=== PATIENT | male | born 1950 | race American Indian/Alaskan Native ===

== ENCOUNTER 2017-05-24 07:33 | Emergency (ER) | payer OTHER ==
[2017-05-24 07:41] VITALS: BMI 27.6
[2017-05-24 07:51] VITALS: TEMP 98.7
[2017-05-24] MEDS ORDERED: Aspirin 325 mg EC Tablets PO STA (07:55)
--- NOTE | 2017-05-24 08:00 | ED PDOC ---
Arrival/HPI - General Chief Complaint: Chest Pain Time Seen by Provider: 05/24/17 07:49 Historian: Patient - History of Present Illness Time/Duration: Other (2-3 days) Symptom Onset: Gradual Symptom Course: Worsening Quality: Other (Pleuritic) Severity Level: Mild Associated Symptoms (Text): 05/24/17 07:57 Patient complains of a 2 to three-day history of left-sided chest pain made worse by breathing movement and palpation. He felt out of breath this morning and came to the emergency department. No nausea or vomiting. No diaphoresis. No dizziness or lightheadedness. No injury or trauma. His never experienced this previously. He appears comfortable and in no distress. Past Medical History - Provider Review Nursing Documentation Reviewed: Yes - Infectious Disease Hx of Infectious Diseases: None - HEENT Hx Cataracts: Yes (Removed OU) Other/Comment: hemmorage OU years ago. Wears glasses - Psychiatric Hx Substance Use: No - Surgical History Hx Cataract Extraction: Yes (OU) Other/Comment: Eye surgery for bleeding. Family/Social History - Physician Review Nursing Documentation Reviewed: Yes Family/Social History: Unknown Family HX Smoking Status: Never Smoked Hx Alcohol Use: No Hx Substance Use: No Allergies/Home Meds Allergies/Adverse Reactions: Allergies No Known Allergies Allergy (Verified 05/24/17 07:51) Review of Systems - Physician Review All systems were reviewed & negative as marked: Yes - Review of Systems Constitutional: Normal Respiratory: SOB. absent: Cough, Sputum, Wheezing Cardiovascular: Chest Pain. absent: Palpitations, Syncope Gastrointestinal: absent: Abdominal Pain, Diarrhea, Nausea, Vomiting Genitourinary Male: Normal Neurological: Normal Physical Exam Vital Signs Temp Pulse Resp BP Pulse Ox 05/24/17 10:25 72 17 115/96 H 100 05/24/17 09:05 76 18 112/97 H 99 05/24/17 07:48 98.7 F 100 H 20 146/91 H 98 Temperature: Afebrile Blood Pressure: Hypertensive Pulse: Regular Respiratory Rate: Normal Appearance: Positive for: Well-Appearing, Non-Toxic, Comfortable Pain Distress: None Mental Status: Positive for: Alert and Oriented X 3 - Systems Exam Head: Present: Atraumatic, Normocephalic Pupils: Present: PERRL Extroacular Muscles: Present: EOMI Conjunctiva: Present: Normal Mouth: Present: Moist Mucous Membranes Pharnyx: No: ERYTHEMA, EXUDATE, TONSILS ENLARGED Neck: Present: Normal Range of Motion Respiratory/Chest: Present: Clear to Auscultation, Good Air Exchange. No: Respiratory Distress, Accessory Muscle Use, Wheezes, Decreased Breath Sounds, Rales, Retracting, Rhonchi, Tachypneic, Tender to Palpation Cardiovascular: Present: Regular Rate and Rhythm, Normal S1, S2. No: Murmurs Abdomen: Present: Normal Bowel Sounds. No: Tenderness, Distention, Peritoneal Signs, Rebound, Guarding Back: Present: Normal Inspection Upper Extremity: Present: Normal Inspection. No: Cyanosis, Edema Lower Extremity: Present: Normal Inspection. No: Edema Neurological: Present: GCS=15, CN II-XII Intact, Speech Normal, Motor Func Grossly Intact Skin: Present: Warm, Dry, Normal Color. No: Rashes Psychiatric: Present: Alert, Oriented x 3, Normal Insight, Normal Concentration Medical Decision Making ED Course and Treatment: 05/24/17 07:59 EKG shows normal sinus rhythm rate approximately 85 with poor R-wave progression and Q waves inferiorly with no old available for comparison. No acute ST or T-wave changes 05/24/17 09:10 Chest X-ray: Creator : Shlomo Martin MD FINDINGS: LUNGS: No active pulmonary disease. PLEURA: No significant pleural effusion identified, no pneumothorax apparent. CARDIOVASCULAR: Normal. OSSEOUS STRUCTURES: No significant abnormalities. VISUALIZED UPPER ABDOMEN: Normal. OTHER FINDINGS: None. IMPRESSION: No active disease. 05/24/17 10:27 Symptoms have improved post Toradol. Patient was seen and examined in the emergency department by , who made arrangements for a stress test and echocardiogram. These are pending. 05/24/17 13:59 called. Stress test and echo are unrevealing. He will discharge the patient and follow-up in the office. Patient has a small pleural effusion on his CTA. This is probably the cause of his pleuritic chest pain. He will be treated with Naprosyn and follow-up in the office. Follow up in ER as needed. - Lab Interpretations Lab Results: 05/24/17 08:00 05/24/17 08:00 Lab Results 05/24/17 08:00: TSH 3rd Generation 2.04 05/24/17 08:00: Hemoglobin A1c 6.0 05/24/17 08:00: Triglycerides 122, Cholesterol 205 H, LDL Cholesterol Direct 102 , HDL Cholesterol 58 05/24/17 08:00: Sodium 140, Potassium 4.1, Chloride 104, Carbon Dioxide 26, Anion Gap 14, BUN 11, Creatinine 1.0, Est GFR ( Amer) > 60, Est GFR (Non- Af Amer) > 60, Random Glucose 156 H, Calcium 9.3, Total Bilirubin 0.6, AST 27, ALT 33, Alkaline Phosphatase 73, Lactate Dehydrogenase 551, Total Creatine Kinase 150, Troponin I < 0.01, NT-Pro-B Natriuret Pep 46.8, Total Protein 7.5, Albumin 4.0, Globulin 3.5, Albumin/Globulin Ratio 1.2 05/24/17 08:00: PT 11.6, INR 1.05, APTT 29.7, D-Dimer, Quantitative 496 H 05/24/17 08:00: WBC 5.4 D, RBC 5.06, Hgb 13.9 L, Hct 41.3 L, MCV 81.6, MCH 27.5 , MCHC 33.7, RDW 14.7 H, Plt Count 105 L, MPV 11.2 H, Gran % 69.8 H, Lymph % ( Auto) 23.4, [place] % (Auto) 5.9, Eos % (Auto) 0.7 L, Baso % (Auto) 0.2, Gran # 3.79, Lymph # 1.3, [place] # 0.3, Eos # 0.0, Baso # 0.01 I have reviewed the lab results: Yes - RAD Interpretation Radiology Orders: 05/24/17 07:56 CHEST PORTABLE [RAD] Stat 05/24/17 09:06 ANGIO CHEST PE PROTOCOL [CT] Stat CT scan of the chest as read by the radiologist shows no evidence of pulmonary embolism. There is a very small left pleural effusion. Custom Applicator: Radiologist - EKG Interpretation Interpreted by ED Physician: Yes Type: 12 lead EKG - Medication Orders Current Medication Orders: Discontinued Medications Aspirin (Ecotrin) 325 mg PO STAT STA Stop: 05/24/17 07:56 Last Admin: 05/24/17 08:13 Dose: 325 mg Ketorolac Tromethamine (Toradol) 15 mg IVP ONCE ONE Stop: 05/24/17 07:57 Last Admin: 05/24/17 08:13 Dose: 15 mg MAR Pain Assessment Document 05/24/17 08:13 RUTH (Rec: 05/24/17 08:14 RUTH [id number]) Pain Reassessment Is this a pain reassessment? No Sleep Is patient sleeping during reassessment? No Presence of Pain Presence of Pain Yes IVP Administration Document 05/24/17 08:13 RUTH (Rec: 05/24/17 08:14 RUTH [id number]) Charges for Administration # of IVP Administrations 1 - Scribe Statement The provider has reviewed the documentation as recorded by the Scribe Ainsley Pal Provider Scribe Attestation: All medical record entries made by the Scribe were at my direction and personally dictated by me. I have reviewed the chart and agree that the record accurately reflects my personal performance of the history, physical exam, medical decision making, and the department course for this patient. I have also personally directed, reviewed, and agree with the discharge instructions and disposition. Disposition/Present on Arrival - Present on Arrival Any Indicators Present on Arrival: No History of DVT/PE: No History of Uncontrolled Diabetes: No Urinary Catheter: No History of Decub. Ulcer: No History Surgical Site Infection Following: None - Disposition Have Diagnosis and Disposition been Completed?: Yes Diagnosis: Pleural effusion, Pleuritic chest pain Disposition: HOME/ ROUTINE Disposition Time: 14:00 Patient Plan: Discharge Condition: IMPROVED Discharge Instructions (ExitCare): Chest Pain (ED), Pleurisy (ED), Pleural Effusion (ED) Prescriptions: Naproxen [Naprosyn] 500 mg PO BID #14 tab Referrals: Booker Barnett MD [Primary Care Provider] - Follow up with primary Forms: [employer] ([place])
[2017-05-24 08:46] LABS: BASO # 0.01 K/mm3 (0.0-2.0); BASO % 0.2 % (0.0-3.0); EOS % 0.7 % (1.5-5.0); GRAN # 3.79 (1.4-6.5); GRAN % 69.8 % (50.0-68.0); HEMATOCRIT 41.3 % (42.0-52.0); LYMPH # 1.3 (1.2-3.4); LYMPH % 23.4 % (22.0-35.0); MEAN CELL VOLUME 81.6 fl (80.0-105.0); MEAN CORPUSCULAR HEMOGLOBIN 27.5 pg (25.0-35.0); MEAN CORPUSCULAR HGB CONC 33.7 g/dl (31.0-37.0); MEAN PLATELET VOLUME 11.2 fl (7.0-11.0); MONO # 0.3 (0.1-0.6); MONO % 5.9 % (1.0-6.0); RED CELL DISTRIBUTION WIDTH 14.7 % (11.5-14.5); WHITE BLOOD COUNT 5.4 10^3/ul (4.5-11.0)
[2017-05-24 08:47] LABS: ALB/GLOB RATIO 1.2 (1.1-1.8); ALKALINE PHOSPHATASE 73 U/L (38-126); ALT/SGPT 33 U/L (7-56); AST/SGOT 27 U/L (17-59); BILIRUBIN,TOTAL 0.6 mg/dL (0.2-1.3); BLOOD UREA NITROGEN 11 mg/dL (7-21); CALCIUM 9.3 mg/dL (8.4-10.5); CARBON DIOXIDE 26 mmol/L (21-33); CHLORIDE 104 mmol/L (98-107); GFR AFRICAN-AMERICAN > 60; GLUCOSE,RANDOM 156 mg/dL (70-110); POTASSIUM 4.1 mmol/L (3.6-5.0); SODIUM 140 mmol/L (132-148); TOTAL PROTEIN 7.5 g/dL (5.8-8.3)
[2017-05-24 08:51] LABS: INR 1.05 (0.93-1.08); PARTIAL THROMBOPLASTIN TIME 29.7 Seconds (25.1-36.5)
[2017-05-24 08:58] LABS: TROPONIN I < 0.01 ng/mL
--- NOTE | 2017-05-24 09:08 | RAD ---
HISTORY: cp COMPARISON: No prior. FINDINGS: LUNGS: No active pulmonary disease. PLEURA: No significant pleural effusion identified, no pneumothorax apparent. CARDIOVASCULAR: Normal. OSSEOUS STRUCTURES: No significant abnormalities. VISUALIZED UPPER ABDOMEN: Normal. OTHER FINDINGS: None. IMPRESSION: No active disease.
[2017-05-24] MEDS ORDERED: Iodixanol 320 MG/ML 100 ML BOTTLE IV ONE (09:13)
[2017-05-24 09:51] LABS: CHOLESTEROL 205 mg/dL (130-200)
--- NOTE | 2017-05-24 10:21 | CT ---
PROCEDURE: CT Chest with contrast (Pulmonary Angiogram) HISTORY: ELEVATED DIMER COMPARISON: None available. TECHNIQUE: Axial computed tomography images were obtained of the chest in the pulmonary arterial phase of enhancement. Coronal and sagittal reformatted images were created and reviewed. Intravenous contrast dose: 100 mL Visipaque 320 Radiation dose: Total exam DLP = 516.08 mGy-cm. This CT exam was performed using one or more of the following dose reduction techniques: Automated exposure control, adjustment of the mA and/or kV according to patient size, and/or use of iterative reconstruction technique. FINDINGS: PULMONARY ARTERIES: Unremarkable. No pulmonary embolism. AORTA: No acute findings. No thoracic aortic aneurysm. LUNGS: Unremarkable. No nodule, mass or pulmonary consolidation. PLEURAL SPACES: Trace left pleural effusion. No right pleural effusion. No pneumothorax. HEART: Unremarkable. No cardiomegaly. No significant pericardial effusion. LYMPH NODES: No lymphadenopathy. BONES, CHEST WALL: Unremarkable. No fracture or destructive lesion OTHER FINDINGS: Unremarkable. IMPRESSION: No evidence of pulmonary embolism. No acute infiltrate. Trace left pleural effusion. Otherwise unremarkable examination
[2017-05-24 10:26] VITALS: O2SAT 100
--- NOTE | 2017-05-24 13:45 | CARD ---
APPROVED REPORT EKG Measurement Heart [id number] AR [id number] [id number] <Conclusion> Normal sinus rhythm Inferior infarct, age undetermined Possible lead reversal V 2, 3
[2017-05-24 14:13] VITALS: BP 118/86; PULSE 75; RESP 18
--- NOTE | 2017-05-24 15:15 | CON ---
DATE: 05/24/2017 CONSULT SERVICE: Cardiology. REASON FOR THE CONSULTATION: Chest pain, abnormal EKG, rule out underlying coronary artery disease. 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 So in summary, the patient has 2 kinds of chest pain. One pain that is more like musculoskeletal reproducible in the left rib, but second pain is mentioned a week ago, he has some chest pain with shortness of breath. PAST MEDICAL HISTORY: Nothing significant. SOCIAL HISTORY: Nothing significant. No history of smoking. No history of alcohol abuse. No history of substance abuse. FAMILY HISTORY: Noncontributory. CURRENT MEDICATIONS: None. ALLERGIES: NO KNOWN DRUG ALLERGIES. REVIEW OF SYSTEMS: As per HPI. PHYSICAL EXAMINATION: VITAL SIGNS: As follows, temperature 98.7, heart rate 100, blood pressure 146/90. HEENT: PERRLA intact. NECK: Supple. No carotid bruit or thyromegaly. CHEST: Clear to auscultation. HEART: S1 and S2 regular. ABDOMEN: Soft. EXTREMITIES: Clubbing and cyanosis negative. LABORATORY DATA: EKG shows normal sinus, Q-wave in II, III, AVF, abnormal EKG. WBC 5.4, hemoglobin 13.9, hematocrit 41.3, platelet count 105. Chemistry shows sodium 140, potassium 4.2, chloride 104, carbon dioxide 26, anion gap of 14, BUN 11, creatinine 1.0, random sugar 156. Troponin 0.01. IMPRESSION: Chest pain most likely musculoskeletal, but giving a very abnormal EKG and also one-week history of prior chest pain with shortness of breath. Needs to rule out underlying coronary artery disease. We will keep n.p.o. We will give a stress test and echo. Further recommendations of the stress. We will follow with you. We will also add lipid profile, TSH and hemoglobin A1c in the blood drawn today. We will follow with you Thank you Dr. Barnett, for providing me the opportunity in taking care of the patient, Dylon Waldrop. Bernadette Wallis MD
--- NOTE | 2017-05-24 15:58 | CARD ---
APPROVED REPORT Protocol: OLI Test Type: Sestamibi Stress Test Attending Physician: Dr. Bernadette Jamil Referring Physician: Dr. Booker Barnett Test Indications: Chest Pain Height:5 ft 8 in Weight:182lbs Medications: TORADOL, ASPIRIN Medical History: 66 YEAR OLD MALE WITH A H/O CATARACTS Target HR: 153 bpm Resting ECG: RSR. Resting Heart Rate: 82 bpm Resting Blood Pressure: 138/90mmHg Submaximum (85%): 130 bpm POST EXERCISE Reason for Termination: Protocol completed Target HR: Yes Max HR: 171 bpm 111% of Maximum Predicted HR: 153 bpm Exercise duration: 09:38 min:sec, 4 Stage Exercise capacity: 11.1METs Max Blood Pressure: 194/84mmHg Blood Pressure response to exercise: normal resting BP - appropriate response Heart Rate response to exercise: appropriate Chest Pain: No, none Angina index: 0 Arrhythmia: No, none ST Change: Yes, 1-1.5mm ST Depression which at times looked Upsloping Type i Deviation: 0 mm TEST SUMMARY [id number]:[id number]/.0. [id number]/90.0. EXERCISESTAGE 103:[id number]/90.0. EXERCISESTAGE 203:[id number]/96.0. EXERCISESTAGE 303:[id number]/90.0. EXERCISESTAGE 400:[id number]/90.0. [id number]:040.00.01.0.194/84.0. INTERPRETATION Stress EKG Conclusion: MYOVIEW NUCLEAR STRESS TEST STOPPED AFTER 9 MINUTESAND 38 SECONDS OF OLI PROTOCOL DUE TO FAIGUE.PATIENT ACHIEVED MORE THAN 100% OF PREDICTED HEART RATE. NO CHEST PAIN. ST DEPRESSION 1-1.5MM WHICH AT TIMES LOOKED UPSLOPING TYPE IN V4,V5,V6. NUCLEAR SCAN REPORT PENDING. Signed by Bernadette Jamil Electronically Approved: 05/24/2017 13:21:32 EXAM: Myocardial Perfusion REST/STRESS Stress Test Type: Exercise Treadmill Imaging Protocol Rest Spect myocardial perfusion imaging was performed in supine position 55 minutes following the injection of 10.8 mCi of Tc-99 Myoview. At peak stress, the patient was injected intravenously with 30.2mCi of Tc-99 tetrofosmin after an exercise time of 9 minutes and 38 seconds. Gated Stress Spect was performed 65 minutes after intravenous Tc-99 Myoview injection. The images were gated to evaluate regional wall motion and calculate ventricular ejection fraction.Images were reconstructed using backfilter projection method in short horizontal and verticle long axis. Spect slices were generated. LV Perfusion The quality of the study is good. The left ventricle is normal in size. The right ventricle is unremarkable. The lung uptake is within normal limits. The distribution of tracer reveals normal uptake pattern throughout the LV myocardium on the stress study. The rest myocardial perfusion study shows no significant change. Wall Motion Wall motion study shows good contractility of the left ventricle. LVEF = 73%. Conclusion 1. Normal SPECT myocardial perfusion study. 2. Normal gated wall motion of the left ventricle.
--- NOTE | 2017-05-24 19:13 | CARD ---
APPROVED REPORT EXAM: Two-dimensional and M-mode echocardiogram with Doppler and color Doppler. INDICATION LVFX/CP 2D DIMENSIONS Left Atrium (2D)3.5 (1.6-4.0cm)IVSd1.1 (0.7-1.1cm) LVDd4.2 (3.9-5.9cm)PWd1.2 (0.7-1.1cm) LVDs2.8 (2.5-4.0cm)FS (%) 33.7 % LVEF (%)62.9 (>50%) M-Mode DIMENSIONS Aortic Root3.50 (2.2-3.7cm)Aortic Cusp Exc.1.80 (1.5-2.0cm) Aortic Valve AoV Peak Fjxbeiil075.0cm/Lorena Peak GR.6mmHg Mitral Valve MV E Wrsgnboc95.2cm/sMV A Wenhatxk15.6cm/sE/A ratio0.8 TDI Lateral E' Peak V13.20cm/sMedial E' Peak V5.07cm/sE/Lateral E'4.5 E/Medial E'11.7 Pulmonary Valve PV Peak Armvfgxg76.3cm/sPV Peak Grad.1mmHg Tricuspid Valve TR Peak Uvtqtjln770ue/sRAP [id number] Peak Gr.21mmHg [id number] LEFT VENTRICLE The left ventricle is normal size. There is normal left ventricular wall thickness. The left ventricular function is normal.EF-60-65% There is normal LV segmental wall motion. Transmitral Doppler flow pattern is Grade III-reversible restrictive diastolic dysfunction. No left ventricle thrombus noted on this study. There is no ventricular septal defect visualized. There is no left ventricular aneurysm. There is no mass noted in the left ventricle. RIGHT VENTRICLE The right ventricle is normal size. There is normal right ventricular wall thickness. The right ventricular systolic function is normal. ATRIA The left atrium size is normal. The right atrium size is normal. The interatrial septum is intact with no evidence for an atrial septal defect. AORTIC VALVE The aortic valve is thickened but opens well. No aortic regurgitation is present. There is no aortic valvular stenosis. There is no aortic valvular vegetation. MITRAL VALVE The mitral valve is thickened but opens well. Mitral regurgitation is trace. There is no mitral valve stenosis. There is no evidence of mitral valve prolapse. TRICUSPID VALVE The tricuspid valve leaflets are thickened , but open well. There is mild tricuspid regurgitation.RVSP-31 mmofHg. There is no tricuspid valve stenosis. PULMONIC VALVE The pulmonic valve is borderline thickened. There is trace pulmonic valvular regurgitation. There is no pulmonic valvular stenosis. GREAT VESSELS The aortic root is normal in size. The ascending aorta is normal in size. The pulmonary artery is normal. The IVC is normal in size and collapses >50% with inspiration. PERICARDIAL EFFUSION There is no pleural effusion. There is no pericardial effusion. <Conclusion> Normal chamber Size: EF-60-65% Trace MR/PI Mild TR, RVSP-31 mmof Hg.
== END 2017-05-24 14:10 | disposition home or self-care (01) ==
LOC: ED 07:33
DX: R07.89 Other chest pain (principal); J90 Pleural effusion, not elsewhere classified
CPT/HCPCS: 71010; 71275; 78452; 80053; 80061; 82550; 83036; 83615; 83880; 84443; 84484; 85025; 85378; 85610; 85730; 93005; 93017; 93306; 96374; 99285; A9502; J1885; Q9967

== ENCOUNTER 2018-07-12 12:21 | Outpatient (CLI) | payer OTHER | END 2018-07-12 12:22 | disposition home or self-care (01) | LOC: RAD 12:21 | DX: G57.11 Meralgia paresthetica, right lower limb (principal) ==